=== PATIENT | male | born 1980 | race Caucasian/White ===

== ENCOUNTER 2024-07-26 06:18 | Outpatient (CLI) | payer BC ==
[2024-07-26] MEDS ORDERED: LIDOcaine 1% 30ml preserv. free vial ONE (06:43)
[2024-07-26] MEDS ORDERED: GADOTERATE MEGLUMINE 7.5 MMOL/15 ML VIAL IV ONE (06:43)
[2024-07-26] MEDS ORDERED: LIDOcaine 1%/PF 5ML 10 MG/ML VIAL ONE (06:43)
[2024-07-26] MEDS ORDERED: iohexol 300 MG/1 ML 50ml polymer ONE (06:43)
== END 2024-07-26 23:59 | disposition home or self-care (01) ==
LOC: RAD 06:18
PROVIDERS: ATTEND Orthopaedic Surgery Hand Surgery
DX: M79.642 Pain in left hand (principal); M65.842 Other synovitis and tenosynovitis, left hand
CPT/HCPCS: 25246; 73222; 77002; A9575; J3490; Q9967; 73115